=== PATIENT | female | born 1980 | race Caucasian/White ===

== ENCOUNTER 2016-12-02 13:09 | Emergency (ER) | payer MEDICAID ==
[~2016-12-02] VITALS: Ht 154.9 cm; Wt 74.8 kg
[~2016-12-02 13:09] MED LIST: ALPRAZOLAM1 MG PO; APAP/BUTALBITAL1 TA1 PO; BACTRIM DS 8001 TA1 PO; CIPRO 250MG TA250 MG PO; DIFLUCAN100 MG PO; FLEXERIL10 MG PO; HYCODAN 5MG. TAB5 MG PO; IBUPROFEN800 MG PO; LAMICTAL 100 M100 MG PO; LAMICTAL200 MG PO; Mobic7.5 MG PO; NAPROSYN 500MG500 MG PO; NYSTATIN100000 U/M MT; PHENERGAN 25MG.25 M1 PO; PREDNISONE 10MG10 MG PO; PROTONIX 40MG T40 MG PO; PROZAC PO; PROZAC40 MG PO; PYRIDIUM 200MG200 MG PO; SEPTRA DS 800 M1 TAB PO; STERAPRED5 MG PO; ULTRAM50 MG PO; VISTARIL25 MG PO
--- NOTE | 2016-12-02 13:25 | Emergency Room Report ---
History of Present Illness Time Seen by MD Saucedo Presenting Problem in Triage Pt arrived: Presenting Problem: Onset of symptoms date/time:/ or onset unknown for: Treatment Prior to Arrival: UROLOGIST PHYSICIAN Provided by: Sepsis Risk Assessment: Temp: B/P: MAP: Pulse: Resp: Recent fever? Clinical Suspician of Infection? Mental Status: Sepsis Risk: Have you (or family members/close friends) recently traveled outside the [place]? If Yes, where/when: Have you had exposure to infectious disease within the past month? TB? Other? Specify: Patient went to a suboxone clinic yesterday to obtain routine labs and was called today regarding a glucose yesterday of 53 and was told to go to the ER. She reports chronic fatigue, drinks a lot of pop; last ate at 0530 today, has some polydipsia and polyuria; does not have a PCP. ALLERGIES Coded Allergies: MDX - Cephalexin (From KEFLEX) (Intermediate, I-RASH 11/09/12) MDX - Codeine (CODEINE) (NA-DIARRHEA 11/09/12) Home Medications Reported Medications [PROZAC] 50 MG PO BID History Medical History General CAD? No Angina: No IN: No Hypertension? No Hyperlipidemia? No CHF? No DVT? No PE? No COPD? No Asthma? Yes Anemia? No GERD? No Gastric ulcers? No GI Bleed? No Hernia? No Thyroid Problems? No Hypothyroidism? No CVA? No Seizures? No Diabetes? No Renal Insuffiency? No End Stage Renal Disease? No UTI? No Stones? No BPH? No GB Disease: Yes Nephritic Syndrome? No Asplenia? No Hepatitis? No Sickle Cell Disease? No Arthritis? No Migraines? No Cataracts? No Glaucoma? No MRSA? No HIV? No TB? No Anxiety? No Depression? No Cancer? No More? No Immunization Hx DT/Tetanus 5-10 YRS Surgical Hx Previous Surgery?Y CHOLECYSTECTOMY C-SECTIONS X 2 BUNIONECTOMY R FOOT Tubal Ligation Social History Smoking Hx Packs/day < 1 Pack Alcohol Alcohol: No Review of Systems All Other Systems Reviewed and Negative (see hpi for endocrine) Physical Exam Vital Signs Vital Signs Date Time Temp Pulse Resp B/P Pulse O2 O2 Flow FiO2 Ox Delivery Rate 12/02 1316 98.2 91 18 121/77 99 General Appearance normal appearance, WD/WN, no apparent distress Eye Exam - bilateral eye normal exam, bilateral eye PERRL, bilateral eye EOMI Neck normal inspection, non-tender, supple, full range of motion Respiratory Status Yes: trachea midline, chest symmetrical, non tender chest. No: respiratory distress, tender on palpation, use of accessory muscles, pain on inspiration, pain on expiration, productive cough, non productive cough. Lung Sounds bilateral: normal breath sounds, lungs clear. Cardiovascular normal exam, regular rate/rhythm, no peripheral edema, no gallop, no JVD, no murmur, no rub, normal peripheral pulses Gastrointestinal normal bowel sounds, normal exam, non tender, soft, no organomegaly, no pulsatile mass, no guarding, no rebound Strength 5 Upper Ext (L), 5 Upper Ext (R), 5 Lower Ext (L), 5 Lower Ext (R) Neurologic alert, normal exam, no motor/sensory deficits, oriented x 3 Glascow Coma Scale Glascow Coma Scale Response Value EYE response: 4 Spontaneously 4 MOTOR response: 6 OBEYS 6 VERBAL response: 5 Oriented & Converses 5 Total 15 Skin intact, normal color, warm/dry Medical Decision Making LABS/Meds/Orders Pt receiving controlled substance in ED? No Results/Orders Orders Procedure Date/time Status FSBS REQUEST BY CARE AREA 12/02 1315 Active Progress ED Progress Notes 1 Date 12/02/16 Time 1323 Comment FSBS 103 ED Progress Notes 2 Date 12/02/16 Time 1325 Comment FSBS 103. Departure Departure Time of Disposition 1323 Disposition DC Home or Self Care(routine) Clinical Impression Primary Impression: Glucose measurement between 50 mg/dl to 400mg/dl Condition STABLE Patient Instructions DI for Hypoglycemia Additional Instructions Your blood sugar was normal today but slightly low yesterday; recommend follow up with family doctor of choice for a fasting blood glucose, which is more reliable. Recommend high protein diet in the meantime with frequent meals and less pop. Discharge Counseling Counseled pt/family regarding diagnosis, test results, home care, follow up needs ED Critical Care Critical Care No at 1325
--- OUTSIDE RECORDS SUMMARY | 2016-12-02 13:33 | External Medical Summary Rpt | CCD ---
Author Author [employer] Organization [employer] Address Unknown Phone Unavailable Purpose Continuity of Care Document - through 2016
--- OUTSIDE RECORDS SUMMARY | 2016-12-02 13:33 | External Medical Summary Rpt | CCD ---
Author Author , DILEEP CASTILLO Address Unknown Phone [email or web address] Purpose Continuity of Care Document - 10-10-2016 through 2016 Results Labs Lab Lab Date Result Refere Interp Status Commen Order Detail nces retati t Range on Phosphate SerPl-mCnc (10-10-2016 01:12) Phospha 10-10-2 3.7 2.5-4.5 complet te 017 mg/dL ed SerPl-m 01:12 Cnc Magnesium SerPl-mCnc (10-10-2016 01:12) Magnesi 10-10-2 2.0 1.9-2.4 complet um 017 mg/dL ed SerPl-m 01:12 Cnc
--- OUTSIDE RECORDS SUMMARY | 2016-12-02 13:33 | External Medical Summary Rpt | CCD ---
Author Author , DILEEP CASTILLO Address Unknown Phone [email or web address] Purpose Continuity of Care Document - 10-10-2016 [...]
--- OUTSIDE RECORDS SUMMARY | 2016-12-02 13:34 | External Medical Summary Rpt | CCD ---
Demographics Preferred Language Urdu Marital Status Unknown Amish Affiliation Unknown Race Unknown Ethnic Group Unknown Author Author , JONATHAN CASTILLO Address Unknown Phone Immunization No patient found.
--- OUTSIDE RECORDS SUMMARY | 2016-12-02 13:34 | External Medical Summary Rpt | CCD ---
Demographics Preferred Language Setswana Marital Status Unknown Church Affiliation Unknown Race Unknown Ethnic Group Unknown Author Author , JONATHAN CASTILLO Address Unknown Phone Immunization No patient found.
--- OUTSIDE RECORDS SUMMARY | 2016-12-02 13:34 | External Medical Summary Rpt ---
Author Author JONATHAN Matute, [employer] Address Unknown Phone Unavailable
[2016-12-02 13:46] VITALS: BP 125/82
== END 2016-12-02 13:47 | disposition home or self-care (01) ==
LOC: ER 13:09
DX: E16.2 Hypoglycemia, unspecified (principal); Z79.899 Other long term (current) drug therapy